=== PATIENT | female | born 1960 | race Caucasian/White ===

== ENCOUNTER → 2016-12-27 | Outpatient (CLI) | payer OTHER ==
[~2016-12-27] VITALS: Ht 160 cm; Wt 68.9 kg
[~2016-12-27] MED LIST: AMBEREN PO; AMBIEN 10 MG TA10 MG PO; ARMOUR THYROID30 M1 PO; ATIVAN1 MG PO; BENADRYL25 MG PO; CARAFATE 1 GM TA1 G1 PO; CARISOPRODOL 3350 MG PO; HYDROCODON-ACE1 EAC7 PO; IBUPROFEN 200200 M1 PO; MIRALAX255 GM PO; MULTI MINERAL PO; NORCO 10-325 T1 EACH PO; VITAMIN B-12 IM; ZOFRAN ODT4 MG PO; [UNRECOGNIZED DRUG - OTHER] TOP
--- NOTE | ~2016-12-27 | HPC ---
[facility] [address] [place] [address] PAIN MANAGEMENT CONSULTATION Name: NICKI TREJO Room #: REG [facility] Neil.#: [id number] Admission: 12/27/16 Attend Phys: Valdo Davies MD Discharge: Date of : 56 Report #: [id number] THIS REPORT FOR: //name// CC: Dr. Lupillo Davies DATE OF SERVICE: 12/27/2016 CHIEF COMPLAINT: Lumbosacral pain. HISTORY OF PRESENT ILLNESS: I have seen the patient before in the pain clinic, but it was 2005, so over 10 years ago. She has had longstanding pain dating back to 1987. She has had surgery on her back first in 1996, a diskectomy followed by an anterior lumbar interbody fusion performed by Dr. Chong in 2001. She has had ongoing pain really since that time with pain that she describes as deep throbbing and aching, radiating into her back and legs. It is worse with prolonged sitting and lying down, and she is actually better when she is up walking and changing position. Nighttimes are hard for her with pain, and she has insomnia both due to pain and to worries. Ambien seems to help some. She is able to do some house work, but it is limited. Her is here today and seems quite supportive. She describes today the pain as 7-8 on the intensity of level and once again as she was 10 years ago was emotional in describing the limits to her lifestyle by her pain. She has had no epidural injections in over 17 years. She has had no radiofrequency lesioning. She did apparently at some point in time had a spinal cord stimulator trial without relief. CURRENT MEDICATIONS: Hydrocodone up to 6 a day provided by Dr. Wesley under terms of an agreement, carisoprodol 350 every 4-6 hours, lorazepam 1 mg morning, noon and night, zolpidem 10 mg at bedtime, sucralfate 1 g daily, ondansetron 4 mg for nausea and Morris Thyroid 600 mg. ALLERGIES: AMOXICILLIN. PAST MEDICAL HISTORY: Remarkable for anemia, hypertension and thyroid disease with hormone replacement. She had an ulcer and has been treated with Carafate. She does take some ibuprofen and is cautious. She has depression associated with her chronic illness. PAST SURGICAL HISTORY: Hysterectomy in 2007, diskectomy in 1996 and the [address] Chong. SOCIAL HISTORY: Denies tobacco or alcohol. Her occupation is homemaker. Impacts of pain scores are highest for sleep and enjoyment of life. She says [address] [address] PAIN MANAGEMENT CONSULTATION Name: NICKI TREJO Room #: REG [facility].#: [id number] Admission: 12/27/16 Attend Phys: Valdo Davies MD Discharge: Date of : 56 Report #: [id number] that the pain interferes with her ability to enjoy life at a level of 9/10. REVIEW OF SYSTEMS: Positive for decreased appetite, fever, night sweats, blurred vision, shortness of breath and dyspnea on exertion, pain at night, asthma, wheezing, constipation and nocturia. She complains of some memory loss and confusion, nervousness and insomnia. She denies depression. PHYSICAL EXAMINATION: GENERAL: She is a pleasant but at times emotional about her pain, occasionally tearful. VITAL SIGNS: Blood pressure 137/75, heart rate 86. BMI is 26.9. EXTREMITIES: She moves quickly and easily from sitting to standing position. She walks with a strong gait. She has good range of motion of the lumbar spine, and this does not really exacerbate her pain. She has localized tenderness, however, very low in the spine across his lumbosacral segment and sacroiliac joint area. She does not have much tenderness along the facet joints. She has minimal myofascial pain and not much spasm today. Straight leg raising is negative, and she denies any leg pain today. Sensation and strength are normal. Absent deep tendon reflexes are noted. I have a packet of information from her physician, which was reviewed. I do not have current x-rays. IMPRESSION: Post-laminectomy and fusion pain. Today, the majority of her pain is across his sacrum and into the sacroiliac joints. RECOMMENDATION: There was a question about a pain pump. Intrathecal pump might be very helpful for her, but this is quite a commitment. She needs to establish with a physician who will be able to provide this therapy for her custodial. Not all physicians are willing to do so. She lives a fair amount of distance from the [facility]. I would recommend Dr. Ash Yarbrough if she wants to pursue intrathecal therapy. I have discussed the pros and cons with her today. She may be a candidate for treatment of the sacroiliac joints with the injection and radiofrequency ablation of the posterior dorsal rami along the sacrum of S1, S2 and S3. I have had success in treating the patients who have had fusions. There seems to be hypermobility within the sacroiliac joints, and they become pain generators. The first step would be a diagnostic injection, which could be performed with or without steroid. She apparently had quite a steroid reaction when she was given a series of epidural injections in 1989. A small amount of triamcinolone can provide some lasting benefit if the sacroiliac joints are involved. The lam, however, is to do diagnostic injections first in the joint, and then if that is positive and favorable, then I would consider doing diagnostic injections of the dorsal branches of S1, S2 and S3 as well as the L5 dorsal ramus to determine if we can anesthetize the branches of the nerves to provide relief. If that is positive and favorable, then radiofrequency ablation [facility] [address] [place] [address] PAIN MANAGEMENT CONSULTATION Name: NICKI TREJO Room #: REG [facility]#: [id number] Admission: 12/27/16 Attend Phys: Valdo Davies MD Discharge: Date of : 56 Report #: [id number] has been a useful tool as mentioned. I discussed this in some detail with the patient and her using skeletal models. She was scheduled back to the clinic after we received preauthorization for her sacroiliac joint injections, and we will begin trying to provide her with some relief with injection therapy. Total time, please note, was 45 minutes with consultation. By: [id number] Valdo Davies MD /nt
[2016-12-27 14:14] VITALS: BP 137/75
== END | disposition home or self-care (01) ==
LOC: PAIN 07:10
DX: M54.5 Low back pain (principal); Z88.8 Allergy status to other drugs, medicaments and biological substances; Z79.899 Other long term (current) drug therapy; Z90.710 Acquired absence of both cervix and uterus; Z98.890 Other specified postprocedural states; M53.3 Sacrococcygeal disorders, not elsewhere classified

== ENCOUNTER → 2020-01-01 | Outpatient (CLI) | payer OTHER | LOC: RAD 11:48 | PROVIDERS: ATTEND Internal Medicine Cardiovascular Disease | DX: Z13.6 Encounter for screening for cardiovascular disorders (principal); I25.10 Atherosclerotic heart disease of native coronary artery without angina pectoris; E78.00 Pure hypercholesterolemia, unspecified ==

== ENCOUNTER → 2020-02-25 | Outpatient (CLI) | payer OTHER | LOC: SJCVCIMAG 09:41 | PROVIDERS: ATTEND Family Medicine | DX: I07.1 Rheumatic tricuspid insufficiency (principal); I25.10 Atherosclerotic heart disease of native coronary artery without angina pectoris ==